=== PATIENT | male | born 1995 | race Caucasian/White ===

== ENCOUNTER 2017-12-22 17:06 | Emergency (ER) | payer OTHER ==
[2017-12-22] MEDS: FAMOTIDINE 20 MG TAB PO (18:05)
[2017-12-22] MEDS: LIDOCAINE/MYLANTA 40 ML BTL PO (18:05)
== END 2017-12-22 18:42 | disposition home or self-care (01) ==
LOC: FTE 17:06
DX: R19.7 Diarrhea, unspecified (principal)
CPT/HCPCS: 99283; Z7502

== ENCOUNTER 2018-12-26 09:28 | Emergency (ER) | payer OTHER ==
[2018-12-26] MEDS: IBUPROFEN LIQUID (PED) 20 MG/ML CUP PO (11:02)
[2018-12-26] MEDS: morphine LIQ (10 MG/5 ML) CUP PO (11:08)
== END 2018-12-26 12:06 | disposition home or self-care (01) ==
LOC: FTE 09:28
DX: S02.601A Fracture of unspecified part of body of right mandible, initial encounter for closed fracture (principal); S02.652B Fracture of angle of left mandible, initial encounter for open fracture; Y04.0XXA Assault by unarmed brawl or fight, initial encounter
CPT/HCPCS: 70486; 99284-25